=== PATIENT | female | born 1960 | race Two or more races ===

== ENCOUNTER 2024-05-26 14:57 | Emergency (ER) | payer OTHER ==
[~2024-05-26] VITALS: Ht 165.1 cm; Wt 88.5 kg
[2024-05-26] MEDS ORDERED: METFORMIN HCL500 M3 PO (15:33)
[2024-05-26] MEDS ORDERED: KETOROLAC TROMETHAMINE 30 MG VIAL ONE (18:06)
[2024-05-26] MEDS ORDERED: TRAMADOL HCL 50 MG TABLET PO ONE (18:15)
== END 2024-05-26 18:44 | disposition home or self-care (01) ==
LOC: ER 14:57
DX: M12.861 Other specific arthropathies, not elsewhere classified, right knee (principal); E11.9 Type 2 diabetes mellitus without complications; Z79.84 Long term (current) use of oral hypoglycemic drugs